=== PATIENT | male | born 1975 | race Two or more races ===

== ENCOUNTER 2023-11-07 22:31 | Emergency (ER) | payer OTHER ==
[~2023-11-07] VITALS: Ht 170.2 cm; Wt 86.0 kg
[2023-11-08 03:42] VITALS: BP 112/78; PULSE 85; RESP 18
[2023-11-08] MEDS ORDERED: BACIOIN15 TOP (03:46)
[2023-11-08] MEDS ORDERED: IBUP-1456 PO (03:46)
[2023-11-08 04:10] VITALS: O2SAT 100
== END 2023-11-08 04:21 | disposition home or self-care (01) ==
LOC: ER 22:31
DX: T22.111A Burn of first degree of right forearm, initial encounter (principal); X10.2XXA Contact with fats and cooking oils, initial encounter; Y93.89 Activity, other specified; Y92.89 Other specified places as the place of occurrence of the external cause; Y99.8 Other external cause status